=== PATIENT | male | born 1995 | race African-American/Black ===

== ENCOUNTER 2017-11-20 10:38 | Emergency (ER) | payer MEDICAID ==
[~2017-11-20] VITALS: Ht 182.9 cm; Wt 67.0 kg
[2017-11-20] MEDS ORDERED: AMOXICILLIN/POTASSIUM CLAVULANATE 875/125MG TAB PO ONE (11:30)
[2017-11-20] MEDS ORDERED: IBUPROFEN 600MG TABLET PO ONE (11:30)
[2017-11-20] MEDS ORDERED: BACITRACIN ZINC OINT UDPKT TOP ONE (11:30)
[2017-11-20] MEDS ORDERED: TETANUS, DIPHTHERIA, PERTUSSIS VAC/PF 0.5ML (>7YR OLD) IM ONE (11:30)
[2017-11-20 11:39] VITALS: BP 127/82
== END 2017-11-20 13:17 | disposition home or self-care (01) ==
LOC: ER 11:57
DX: S61.451A Open bite of right hand, initial encounter (principal); L03.113 Cellulitis of right upper limb; S93.402A Sprain of unspecified ligament of left ankle, initial encounter; Y04.1XXA Assault by human bite, initial encounter; X58.XXXA Exposure to other specified factors, initial encounter; Y93.89 Activity, other specified; Y92.89 Other specified places as the place of occurrence of the external cause; Z23 Encounter for immunization
CPT/HCPCS: 73130; 73610; 90471; 90715; 99284; Z7610

== ENCOUNTER 2023-06-21 12:00 | Emergency (ER) | payer MEDICAID ==
[~2023-06-21] VITALS: Ht 185.4 cm; Wt 68.0 kg
[2023-06-21 12:09] VITALS: O2SAT 100
[2023-06-21] MEDS ORDERED: NAPR-1176 MT (14:37)
[2023-06-21] MEDS ORDERED: HYDROCODONE/ACETAMINOPHEN 5/325MG TABLET PO ONE (15:15)
[2023-06-21 16:49] VITALS: BP 120/84; PULSE 63; RESP 18; TEMP 98.2
== END 2023-06-21 16:51 | disposition home or self-care (01) ==
LOC: ER 12:00
DX: S60.211A Contusion of right wrist, initial encounter (principal); S00.93XA Contusion of unspecified part of head, initial encounter; Y04.0XXA Assault by unarmed brawl or fight, initial encounter; Y93.89 Activity, other specified; Y92.89 Other specified places as the place of occurrence of the external cause; Y99.8 Other external cause status
CPT/HCPCS: 70486; 73110; 99284

== ENCOUNTER 2024-12-12 23:53 | Emergency (ER) | payer MEDICAID, OTHER ==
[~2024-12-12] VITALS: Ht 177.8 cm; Wt 66.0 kg
[~2024-12-12 23:53] MED LIST: NAPR-1176 MT
[2024-12-13 00:07] VITALS: TEMP 36.6; O2SAT 98
[2024-12-13 01:31] VITALS: TEMP 97.7
[2024-12-13] MEDS: ACETAMINOPHEN 500MG TABLET PO ONE (01:31)
[2024-12-13] MEDS ORDERED: IBUP-2029 MT (03:01)
[2024-12-13 03:10] VITALS: BP 112/2; PULSE 59; RESP 12; O2SAT 100
== END 2024-12-13 03:16 | disposition home or self-care (01) ==
LOC: ER 23:53
DX: S09.90XA Unspecified injury of head, initial encounter (principal); S00.83XA Contusion of other part of head, initial encounter; S40.012A Contusion of left shoulder, initial encounter; M54.2 Cervicalgia; Z79.1 Long term (current) use of non-steroidal anti-inflammatories (NSAID); Z79.899 Other long term (current) drug therapy; W19.XXXA Unspecified fall, initial encounter; Y93.89 Activity, other specified; Y92.89 Other specified places as the place of occurrence of the external cause; Y99.8 Other external cause status
CPT/HCPCS: 71045; 73030; 99284